=== PATIENT | female | born 1965 ===

== ENCOUNTER 2021-04-06 18:10 | Emergency (ER) | payer BC ==
[2021-04-06] MEDS ORDERED: Octyl 2-Cyanoacrylate 1 APPLIC TUBE TOP ONE (18:28)
[2021-04-06] MEDS ORDERED: Ondansetron 4 MG/2 ML SDV IVPUSH ONE (18:45)
[2021-04-06] MEDS ORDERED: Ketorolac 30 MG/ML SDV IVPUSH ONE (18:45)
[2021-04-06] MEDS ORDERED: Sodium Chloride 0.9% 1,000 ML IV ONE (18:45)
[2021-04-06] MEDS ORDERED: Morphine 4 MG/ML Syringe IVPUSH ONE (18:46)
[2021-04-06 19:24] LABS: BLOOD UREA NITROGEN,BUN 15 mg/dL (7.0-18.0); CARBON DIOXIDE,CO2 26.4 mmol/L (21.0-32.0); CHLORIDE,CL 105 mmol/L (98-107); GLUCOSE RANDOM 133 mg/dL (74-106); LIPASE 203 U/L (73-393); POTASSIUM,K 3.9 mmol/L (3.5-5.1); SODIUM,NA 142 mmol/L (136-145)
[2021-04-06] MEDS ORDERED: Iopamidol 755 MG/ML 500 ML Multipack Bottle IVPUSH ONE (20:00)
--- NOTE | 2021-04-06 20:05 | EDM.PDOC ---
<Ethan Garcia - Last Filed: 04/06/21 23:07> ED HPI GENERAL MEDICAL PROBLEM - General Chief Complaint: Abdominal Pain Stated Complaint: POSSIBLE FOOD POISONING Time Seen by Provider: 04/06/21 18:35 - Related Data Allergies Allergy/AdvReac Type Severity Reaction Status Date / Time No Known Allergies Allergy Verified 08/25/15 05:26 Home Meds: Home Meds Levofloxacin [Levaquin] 500 mg PO DAILY #10 tablet 04/06/21 [Rx] Course - Vital Signs Text/Narrative:: Pt was to be admitted by surgery for MRCP in morning, and continued treatment and managment. Pt alert and oriented. Pt understandings risks of significant morbidity and/or mortality. Pt is able to discuss illustrating understanding. Pt has capacity to make own decisions and is signing out against medical advice. As per surgery, antibiotics, return precautions and followup in office as patient will not stay in the hospital. Departure - Departure Time of Disposition: 23:09 Disposition: Home, Self-Care 01 Condition: Good Clinical Impression: Abdominal pain - Discharge Information Prescriptions: Levofloxacin [Levaquin] 500 mg PO DAILY #10 tablet Instructions: Abdominal Pain, Adult Referrals: PCP,None [Primary Care Provider] - Forms: ED Department Discharge Additional Instructions: Return for fevers increased pain or if you change your mind and would like to stay in the hospital. Otherwise take antibiotics as prescribed and follow-up w ith surgery as discussed in 1 week (Dr. Upton) Dr. Upton [facility] - General Surgery [address], [address] [place] [address] The following information is given to patients seen in the emergency department who are being discharged to home. This information is to outline your options for follow-up care. We provide all patients seen in our emergency department with a follow-up referral. The need for follow-up, as well as the timing and circumstances, are variable depending upon the specifics of your emergency department visit. If you don't have a primary care physician on staff, we will provide you with a referral. We always advise you to contact your personal physician following an emergency department visit to inform them of the circumstance of the visit and for follow-up with them and/or the need for any referrals to a consulting specialist. The emergency department will also refer you to a specialist when appropriate. This referral assures that you have the opportunity for follow-up care with a specialist. All of these measure are taken in an effort to provide you with optimal care, which includes your follow-up. Primary care clinics in the area: [facility] [address] [place] [address] [place] [address] Under all circumstances we always encourage you to contact your private physician who remains a resource for coordinating your care. When calling for follow-up care, please make the office aware that this follow-up is from your recent emergency room visit. If for any reason you are refused follow-up, please contact the [facility] Emergency Department at and asked to speak to the emergency department charge nurse. <Yuni Ortez - Last Filed: 04/08/21 09:55> ED HPI GENERAL MEDICAL PROBLEM - General Source of Information: Reports: Patient History Limitations: Reports: No Limitations - History of Present Illness INITIAL COMMENTS - FREE TEXT/NARRATIVE: HISTORY AND PHYSICAL: History of present illness: Patient is a 55-year-old female who presents emergency room today with concern of right-sided abdominal pain, nausea, vomiting, and chills that began 2 PM this afternoon. Patient states that she was eating pickled hearing and hard boiled eggs and states approximately 2030 min later, she began feeling nauseous, had three episodes of nonbilious nonbloody vomiting, and started developing right- sided abdominal pain. Patient states that there at times that she fell like she could not sit still as the pain was more significant and states that she has had chills but states she does not think that she has had a fever. Patient states that when her symptoms had started, she was getting the "cold sweats ". Patient states that she still feels nauseous but has not vomited since prior to leaving her house. Patient denies any abdominal surgeries or any other symptoms or co ncerns. Patient denies fever, chest pain, shortness of breath, or cough. Denies headache, neck stiff ness, change in vision, syncope, or near syncope. Denies diarrhea, constipation, or dysuria. Has not noted any blood in urine or stool. Patient has been eating and drinking appropriately prior to onset of symptoms. Review of systems: As per history of present illness and below otherwise all systems reviewed and negative. Past medical history: As per history of present illness and as reviewed below otherwise noncontributory. Surgical history: As per history of present illness and as reviewed below otherwise noncontributory. Social history: See social history for further information Family history: As per history of present illness and as reviewed below otherwise noncontributory. Physical exam: General: Patient is alert, oriented, and in no acute distress. Patient laying comfortably on exam table. Vitals stable and reviewed by me HEENT: Atraumatic, normocephalic, pupils equal and reactive bilaterally, negative for conjunctival pallor or scleral icterus, mucous membranes moist, TMs normal bilaterally, throat clear, neck supple, nontender, trachea midline. No drooling or trismus noted. No meningeal signs. No hot potato voice noted. Lungs: Clear to auscultation, breath sounds equal bilaterally, chest nontender. Heart: S1S2, regular rate and rhythm without overt murmur Abdomen: Soft, nondistended, moderate right upper and right lower quadrant tenderness with guarding. Negative for masses or hepatosplenomegaly. Negative for costovertebral tenderness. Pelvis: Stable nontender. Genitourinary: Deferred. Rectal: Deferred. Skin: Intact, warm, dry. No lesions or rashes noted. Extremities: Atraumatic, negative for cords or calf pain. Neurovascular unremarkable. Neuro: Awake, alert, oriented. Cranial nerves II through XII unremarkable. Cerebellum unremarkable. Motor and sensory unremarkable throughout. Exam nonfocal. Notes: Patient is a 55-year-old female who presents emergency room today secondary to right-sided abdominal pain, nausea, chills, and vomiting occurring a few hours prior to arrival to the emergency room. Upon arrival to the ED, patient is vitally stable with moderate right upper and lower abdominal tenderness on exam with guarding. Will obtain basic lab work and abdominal pelvic CT scan. CBC shows a leukocytosis at 14.92, otherwise, mild derangements of CBC unremarkable. CMP shows mild elevation of glucose at 133, mild transaminitis of AST and ALT at 254 and 161 respectively, otherwise mild derangements of CMP unremarkable. Urinalysis is clear. Abdominal pelvic CT scan shows questionable gallbladder wall thickening. Further evaluation recommended with ultrasound. Colonic diverticulosis without diverticulitis. Normal appendix. Bilateral L5 spondylolysis with mild anterior listhesis of L5 on S1. Dr. Garcia has assumed care of patient and will follow RUQ US and remaining disposition for patient. Diagnostics: CBC, CMP, UA, lipase, abdominal pelvic CT scan with contrast, RUQ US Therapeutics: Normal saline, Zofran, Toradol, morphine Prescription: Impression: Abdominal pain, right sided Leukocytosis Transaminitis Plan: Definitive disposition and diagnosis as appropriate pending reevaluation and review of above. 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: Other (See Below) Other LINE HAUL DRIVER History: ectopic Musculoskeletal History: Reports: None Neurological History: Reports: None Psychiatric History: Reports: None Endocrine/Metabolic History: Reports: None Hematologic History: Reports: None Dermatologic History: Reports: None - Infectious Disease History Infectious Disease History: Reports: None - Past Surgical History HEENT Surgical History: Reports: None Cardiovascular Surgical History: Reports: None Respiratory Surgical History: Reports: None Neurological Surgical History: Reports: None Dermatological Surgical History: Reports: None Social & Family History - Family History Family Medical History: No Pertinent Family History - Tobacco Use Tobacco Use Status *Q: Never Tobacco User - Caffeine Use Caffeine Use: Reports: None - Recreational Drug Use Recreational Drug Use: No ED ROS GENERAL - Review of Systems Review Of Systems: Comprehensive ROS is negative, except as noted in HPI. ED EXAM, GENERAL - Physical Exam Exam: See Below (see dictation) Course - Vital Signs Last Recorded V/S: Last Vital Signs Temp 97.5 F 04/06/21 18:15 Pulse 72 04/06/21 23:28 Resp 17 04/06/21 23:28 BP 127/75 04/06/21 23:28 Pulse Ox 96 04/06/21 23:28 - Orders/Labs/Meds Labs: Laboratory Tests 04/06/21 04/06/21 04/06/21 Range/Units 18:57 18:57 20:06 WBC 14.92 H (4.0-11.0) K/uL RBC 5.03 (4.30-5.90) M/uL Hgb 14.4 (12.0-16.0) g/dL Hct 41.0 (36.0-46.0) % MCV 81.5 (80.0-98.0) fL MCH 28.6 (27.0-32.0) pg MCHC 35.1 (31.0-37.0) g/dL RDW Std Deviation 41.7 (28.0-62.0) fl RDW Coeff of Melissa 14 (11.0-15.0) % Plt Count 370 (150-400) K/uL MPV 9.40 (7.40-12.00) fL Neut % (Auto) 88.5 H (48.0-80.0) % Lymph % (Auto) 6.4 L (16.0-40.0) % [place] % (Auto) 4.7 (0.0-15.0) % Eos % (Auto) 0.3 (0.0-7.0) % Baso % (Auto) 0.1 (0.0-1.5) % Neut # (Auto) 13.2 H (1.4-5.7) K/uL Lymph # (Auto) 1.0 (0.6-2.4) K/uL [place] # (Auto) 0.7 (0.0-0.8) K/uL Eos # (Auto) 0.0 (0.0-0.7) K/uL Baso # (Auto) 0.0 (0.0-0.1) K/uL Nucleated RBC % 0.0 /100WBC Nucleated RBCs # 0 K/uL Sodium 142 (136-145) mmol/L Potassium 3.9 (3.5-5.1) mmol/L Chloride 105 (98-107) mmol/L Carbon Dioxide 26.4 (21.0-32.0) mmol/L BUN 15 (7.0-18.0) mg/dL Creatinine 0.8 (0.6-1.0) mg/dL Est Cr Clr Drug Dosing 73.51 mL/min Estimated GFR (MDRD) > 60.0 ml/min Glucose 133 H (74-106) mg/dL Calcium 9.4 (8.5-10.1) mg/dL Total Bilirubin 0.7 (0.2-1.0) mg/dL AST 254 H (15-37) IU/L ALT 161 H (14-63) IU/L Alkaline Phosphatase 94 (46-116) U/L Total Protein 8.8 H (6.4-8.2) g/dL Albumin 4.0 (3.4-5.0) g/dL Globulin 4.8 H (2.6-4.0) g/dL Albumin/Globulin Ratio 0.8 L (0.9-1.6) Lipase 203 (73-393) U/L Urine Color YELLOW Urine Appearance CLEAR Urine pH 7.5 (5.0-8.0) Ur Specific [place] 1.015 (1.001-1.035) Urine Protein NEGATIVE (NEGATIVE) mg/dL Urine Glucose (UA) NEGATIVE (NEGATIVE) mg/dL Urine Ketones NEGATIVE (NEGATIVE) mg/dL Urine Occult Blood NEGATIVE (NEGATIVE) Urine Nitrite NEGATIVE (NEGATIVE) Urine Bilirubin NEGATIVE (NEGATIVE) Urine Urobilinogen 0.2 (<2.0) EU/dL Ur Leukocyte Esterase NEGATIVE (NEGATIVE) Meds: Medications Discontinued Medications Generic Name Dose Route Start Last Admin Trade Name Freq PRN Reason Stop Dose Admin Sodium Chloride 1,000 mls @ 999 mls/hr 04/06/21 18:45 04/06/21 18:57 Normal Saline IV 04/06/21 19:45 999 mls/hr BOLUS ONE Administration Iopamidol 100 ml 04/06/21 20:00 04/06/21 20:24 Iopamidol 755 Mg/Ml 500 Ml Multipack Bottle IVPUSH 04/06/21 20:01 100 ml ONETIME ONE Administration Ketorolac Tromethamine 30 mg 04/06/21 18:45 04/06/21 19:01 Ketorolac 30 Mg/Ml Sdv IVPUSH 04/06/21 18:46 Not Given ONETIME ONE Levofloxacin 500 mg 04/06/21 23:11 04/06/21 23:21 Levofloxacin 500 Mg Tab PO 04/06/21 23:12 500 mg ONETIME ONE Administration Morphine Sulfate 4 mg 04/06/21 18:46 04/06/21 19:01 Morphine 4 Mg/Ml Syringe IVPUSH 04/06/21 18:47 Not Given ONETIME ONE Octyl Cyanoacrylate 1 applic 04/06/21 18:28 04/06/21 18:46 Octyl 2-Cyanoacrylate 1 Applic Tube TOP 04/06/21 18:29 Not Given ONETIME ONE Ondansetron HCl 4 mg 04/06/21 18:45 04/06/21 19:01 Ondansetron 4 Mg/2 Ml Sdv IVPUSH 04/06/21 18:46 Not Given ONETIME ONE Sepsis Event Note (ED) - Evaluation Sepsis Screening Result: No Definite Risk
--- NOTE | 2021-04-06 20:58 | CT ---
Indication: Right-sided abdominal pain Technique: Contrast enhanced axial CT imaging through the abdomen and pelvis. 100 mL Isovue 370 contrast agent was administered intravenously. Sagittal and coronal reconstructions are provided. Comparison: None Findings: The liver, spleen, pancreas, adrenal glands, and kidneys demonstrate no significant abnormality. Gallbladder wall thickening is suggested. The portal vein is patent. The abdominal aorta is normal in caliber. There is no abdominal lymphadenopathy. The stomach and duodenum are unremarkable. There is no small bowel wall thickening or abnormal distention. The appendix is noninflamed. There is diverticulosis of the descending and sigmoid colon. There is no colonic wall thickening or mesenteric edema. Note is made of left pelvic varices with mild enlargement of the left ovarian vein, measuring up to 6 mm in diameter. There is no adnexal mass. The uterus and urinary bladder are unremarkable. 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 Degenerative disc disease is also noted at L5-S1. The included lung bases are clear. Impression: 1. Questionable gallbladder wall thickening. Further evaluation is recommended with ultrasound. 2. Colonic diverticulosis without evidence of diverticulitis. 3. Normal appendix. 4. Bilateral L5 spondylolysis with mild anterolisthesis of L5 on S1. Please note that all CT scans at this facility use dose modulation, iterative reconstruction, and/or weight-based dosing when appropriate to reduce radiation dose to as low as reasonably achievable. Dictated by Ilene Drake MD @ 04/06/2021 8:56:00 PM (Electronically Signed)
--- NOTE | 2021-04-06 22:34 | US ---
INDICATION: Right upper and lower quadrant pain. COMPARISON: CT of the abdomen and pelvis from earlier today. TECHNIQUE: Ultrasound examination of the right upper quadrant was performed. FINDINGS: There are findings suggestive of acute, acalculous cholecystitis. The gallbladder wall is mildly thickened at 4 millimeters. The sonographic Bazan sign is present, with pain over the gallbladder during ultrasound examination. There is no sign of cholelithiasis. There is no pericholecystic fluid. The common bile duct is mildly increased in caliber at 8 mm. The pancreatic head and body were examined, and these are normal in appearance. The abdominal aorta and visualized portions of the inferior vena cava are normal in appearance. The liver shows no sign of mass or contour abnormality, and there is no sign of ascites. There is increased hepatic echogenicity consistent with fatty infiltration, not evident on the CT. The right kidney is unremarkable. IMPRESSION: Findings suggestive of acute, acalculous cholecystitis. A sonographic Bazan sign is present. Mild biliary ductal dilatation. Fatty infiltration of the liver. Dictated by Michael Villalobos MD @ 04/06/2021 10:33:08 PM (Electronically Signed)
--- NOTE | 2021-04-06 23:10 | PCM.CONS ---
H&P History of Present Illness - General Date of Service: 04/06/21 Source of Information: Patient History Limitations: Reports: No Limitations - History of Present Illness Initial Comments - Free Text/Narative: Patient is a 55 year old female who presented to the ER tonight with nausea, vomiting, and abdominal pain. She ate around 2PM this afternoon and developed sharp RUQ abdominal pain associated with nausea and vomiting. She vomited 3 times then presented to the ER. Her past medical history is significant for an incomplete work up for cardiac concerns in 2019. Her vitals were stable. She was given IV fluids and refused all pain medication. CBC was significant for an elevated WBC of 14K with a left shift. Her CMP was significant for an elevated AST and ALT. Ct scan of the abdomen pelvis showed questionable thickening of the gallbladder. US of the RUQ showed thickened GB wall with a mildly dilated CBD. The radiologist felt this was consistent with acalculous cholecystitis. Her abdominal pain resolved while in the ER. Left Abdomen Pain Score (Numeric/FACES): 3 - Related Data Allergies/Adverse Reactions: Allergies Allergy/AdvReac Type Severity Reaction Status Date / Time No Known Allergies Allergy Verified 08/25/15 05:26 Home Medications: Home Meds . 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 (See Below) Other OB/BYN History: ectopic Musculoskeletal History: Reports: None Neurological History: Reports: None Psychiatric History: Reports: None Endocrine/Metabolic History: Reports: None Hematologic History: Reports: None Dermatologic History: Reports: None - Infectious Disease History Infectious Disease History: Reports: None - Past Surgical History HEENT Surgical History: Reports: None Cardiovascular Surgical History: Reports: None Respiratory Surgical History: Reports: None Neurological Surgical History: Reports: None Dermatological Surgical History: Reports: None Social & Family History - Family History Family Medical History: No Pertinent Family History - Tobacco Use Tobacco Use Status *Q: Never Tobacco User - Caffeine Use Caffeine Use: Reports: None - Recreational Drug Use Recreational Drug Use: No H&P Review of Systems - Review of Systems: Review Of Systems: Comprehensive ROS is negative, except as noted in HPI. Exam - Exam Exam: See Below - Vital Signs Vital Signs: Last Vital Signs Temp 36.4 C 04/06/21 18:15 Pulse 80 04/06/21 22:58 Resp 18 04/06/21 22:58 BP 121/70 04/06/21 22:58 Pulse Ox 95 04/06/21 22:58 Weight: 90.6 kg - Exam General: Alert, Oriented HEENT: Conjunctiva Clear, Mucosa Moist & [place], Posterior Pharynx Clear Neck: Supple, Trachea Midline Lungs: Clear to Auscultation, Normal Respiratory Effort Cardiovascular: Regular Rate, Regular Rhythm GI/Abdominal Exam: Soft, Non-Tender, No Distention, No Mass Extremities: Normal Inspection - Patient Data Lab Results Last 24 hrs: Laboratory Results - last 24 hr 04/06/21 04/06/21 04/06/21 Range/Units 18:57 18:57 20:06 WBC 14.92 H (4.0-11.0) K/uL RBC 5.03 (4.30-5.90) M/uL Hgb 14.4 (12.0-16.0) g/dL Hct 41.0 (36.0-46.0) % MCV 81.5 (80.0-98.0) fL MCH 28.6 (27.0-32.0) pg MCHC 35.1 (31.0-37.0) g/dL RDW Std Deviation 41.7 (28.0-62.0) fl RDW Coeff of [place] 14 (11.0-15.0) % Plt Count 370 (150-400) K/uL MPV 9.40 (7.40-12.00) fL Neut % (Auto) 88.5 H (48.0-80.0) % Lymph % (Auto) 6.4 L (16.0-40.0) % [place] % (Auto) 4.7 (0.0-15.0) % Eos % (Auto) 0.3 (0.0-7.0) % Baso % (Auto) 0.1 (0.0-1.5) % Neut # (Auto) 13.2 H (1.4-5.7) K/uL Lymph # (Auto) 1.0 (0.6-2.4) K/uL [place] # (Auto) 0.7 (0.0-0.8) K/uL Eos # (Auto) 0.0 (0.0-0.7) K/uL Baso # (Auto) 0.0 (0.0-0.1) K/uL Nucleated RBC % 0.0 /100WBC Nucleated RBCs # 0 K/uL Sodium 142 (136-145) mmol/L Potassium 3.9 (3.5-5.1) mmol/L Chloride 105 (98-107) mmol/L Carbon Dioxide 26.4 (21.0-32.0) mmol/L BUN 15 (7.0-18.0) mg/dL Creatinine 0.8 (0.6-1.0) mg/dL Est Cr Clr Drug Dosing 73.51 mL/min Estimated GFR (MDRD) > 60.0 ml/min Glucose 133 H (74-106) mg/dL Calcium 9.4 (8.5-10.1) mg/dL Total Bilirubin 0.7 (0.2-1.0) mg/dL AST 254 H (15-37) IU/L ALT 161 H (14-63) IU/L Alkaline Phosphatase 94 (46-116) U/L Total Protein 8.8 H (6.4-8.2) g/dL Albumin 4.0 (3.4-5.0) g/dL Globulin 4.8 H (2.6-4.0) g/dL Albumin/Globulin Ratio 0.8 L (0.9-1.6) Lipase 203 (73-393) U/L Urine Color YELLOW Urine Appearance CLEAR Urine pH 7.5 (5.0-8.0) Ur Specific [place] 1.015 (1.001-1.035) Urine Protein NEGATIVE (NEGATIVE) mg/dL Urine Glucose (UA) NEGATIVE (NEGATIVE) mg/dL Urine Ketones NEGATIVE (NEGATIVE) mg/dL Urine Occult Blood NEGATIVE (NEGATIVE) Urine Nitrite NEGATIVE (NEGATIVE) Urine Bilirubin NEGATIVE (NEGATIVE) Urine Urobilinogen 0.2 (<2.0) EU/dL Ur Leukocyte Esterase NEGATIVE (NEGATIVE) Result Diagrams: 04/06/21 18:57 04/06/21 18:57 Sepsis Event Note - Evaluation Sepsis Screening Result: No Definite Risk - Focused Exam Vital Signs: Vital Signs Temp Pulse Resp BP Pulse Ox 04/06/21 22:58 80 18 121/70 95 04/06/21 20:59 96 19 143/65 H 95 04/06/21 18:15 36.4 C 90 20 126/51 L 97 Consult PN Assessment/Plan Procedures: Procedures ASSAY OF AMYLASE (08/25/15) ASSAY OF LIPASE (08/25/15) ASSAY THYROID STIM HORMONE (07/16/19) ABRAHAM DNA DIR PROBE (07/16/19) CHYLMD TRACH DNA AMP PROBE (07/16/19) COMPLETE CBC W/AUTO DIFF WBC (08/25/15) COMPREHEN METABOLIC PANEL (07/16/19) CULTURE AEROBIC IDENTIFY (02/07/20) CULTURE OTHR SPECIMN AEROBIC (02/07/20) CYTOPATH C/V AUTO FLUID REDO (07/16/19) EMERGENCY DEPT VISIT (08/25/15) MILLER VAG DNA DIR PROBE (07/16/19) HEPATITIS B SURFACE AG IA (07/16/19) HEPATITIS C AB TEST (07/16/19) HIV-1 AG W/HIV-1 & -2 AB AG IA (07/16/19) LIPID PANEL (07/16/19) MICROBE SUSCEPTIBLE YUNIOR (02/07/20) N.GONORRHOEAE DNA AMP PROB (07/16/19) ROUTINE VENIPUNCTURE (08/25/15) SMEAR GRAM STAIN (02/07/20) SYPHILIS TEST NON-TREP QUAL (07/16/19) TRICHOMONAS VAGIN DIR PROBE (07/16/19) URINALYSIS AUTO W/SCOPE (08/25/15) X-RAY EXAM OF ABDOMEN (08/25/15) (1) Acute acalculous cholecystitis SNOMED Code(s): 71563919 Code(s): K81.0 - ACUTE CHOLECYSTITIS Current Visit: Yes Problem List Initiated/Reviewed/Updated: Yes Plan: I visited with the patient in the ER. I explained the pathophysiology of biliary disease. We reviewed her imaging and laboratory results. I recommended admission to the hospital with bowel rest, IV fluids, IV antibiotics and a possible MRI of the abdomen to better characterize the etiology of her CBD dilation. We discussed the possibility of a cholecystectomy. She refused admission. I explained the risks of leaving including worsening symptoms, sepsis, gallbladder necrosis and or . The patient and her verbalized understanding. I encouraged her to return immediately if her symptoms reoccurred. She will be discharged home on antibiotics and recommendations for follow up as an outpatient within a week.
[2021-04-06] MEDS ORDERED: Levofloxacin 500 MG Tab PO ONE (23:11)
[2021-04-06 23:29] VITALS: BP 127/75; PULSE 72
== END 2021-04-06 23:29 | disposition home or self-care (01) ==
LOC: MW.ED 18:10
DX: R10.11 Right upper quadrant pain (principal); R10.31 Right lower quadrant pain; R74.01 Elevation of levels of liver transaminase levels; D72.829 Elevated white blood cell count, unspecified
CPT/HCPCS: 36415; 74177; 76705; 80053; 81003; 83690; 85025; 99284; A9270; J7030; Q9967